=== PATIENT | male | born 1960 | race African-American/Black ===

== ENCOUNTER 2025-07-03 17:57 | Emergency (ER) | payer SELFPAY ==
[~2025-07-03] VITALS: Ht 162.6 cm; Wt 63.0 kg
[2025-07-03 18:01] VITALS: O2SAT 98
[2025-07-03] MEDS: ACETAMINOPHEN 325MG TABLET PO ONE (20:12)
[2025-07-03 21:15] VITALS: BP 148/83; PULSE 75; RESP 17; TEMP 36.8; O2SAT 97
== END 2025-07-03 21:30 | disposition home or self-care (01) ==
LOC: ER 17:57
DX: S00.93XA Contusion of unspecified part of head, initial encounter (principal); X58.XXXA Exposure to other specified factors, initial encounter; Y93.89 Activity, other specified; Y92.89 Other specified places as the place of occurrence of the external cause; Y99.8 Other external cause status
CPT/HCPCS: 96374; 99284; 99285